=== PATIENT | female | born 1990 | race Caucasian/White ===

== ENCOUNTER 2017-08-08 17:21 | Emergency (ER) | payer SELFPAY | END 2017-08-08 18:48 | disposition home or self-care (01) | LOC: ER 17:21 | DX: O9A.212 Injury, poisoning and certain other consequences of external causes complicating pregnancy, second trimester (principal); O23.42 Unspecified infection of urinary tract in pregnancy, second trimester; S39.012A Strain of muscle, fascia and tendon of lower back, initial encounter; Z3A.15 15 weeks gestation of pregnancy; V89.2XXA Person injured in unspecified motor-vehicle accident, traffic, initial encounter ==